=== PATIENT | male | born 1965 | race Caucasian/White ===

== ENCOUNTER 2017-11-24 00:24 | Emergency (ER) | payer MEDICAID ==
[~2017-11-24] VITALS: Ht 165.1 cm; Wt 66.2 kg
[2017-11-24 00:32] VITALS: BP 129/77
== END 2017-11-24 01:00 | disposition left against medical advice (07) ==
LOC: ER 00:24
DX: R50.9 Fever, unspecified (principal); R10.9 Unspecified abdominal pain; Z53.21 Procedure and treatment not carried out due to patient leaving prior to being seen by health care provider